=== PATIENT | female | born 1985 | race African-American/Black ===

== ENCOUNTER 2016-06-20 15:32 | Emergency (ER) | payer MEDICAID, OTHER ==
[~2016-06-20] VITALS: Ht 157.5 cm; Wt 69.0 kg
[2016-06-20 15:37] VITALS: BP 124/71
== END 2016-06-20 18:53 | disposition home or self-care (01) ==
LOC: ER 15:33
DX: J32.9 Chronic sinusitis, unspecified (principal); J30.9 Allergic rhinitis, unspecified
CPT/HCPCS: 99283